=== PATIENT | male | born 1940 | race Caucasian/White ===

== ENCOUNTER 2025-08-03 07:47 | Outpatient (CLI) | payer MEDICARE, BC, SELFPAY ==
--- NOTE | 2025-08-03 08:52 | P.ANES_ITS ---
Anesthesia Charges Start Date/Time Anesthesia Start Date: 08/03/25 Anesthesia Start Time: 08:25 Stop Date/Time Anesthesia Stop Date: 08/03/25 Anesthesia Stop Time: 08:50 Coding CPT Codes CPT Codes: ANES LWR INTST NDSC NOS - [id number] ([id number]) P3 - PATIENT W/SEVERE SYS DISEASE, QK - INFORMATION SYSTEMS SECURITY SPECIALIST 2-4 CNCRNT ANES PROC, QX - FILLER SHAKER SVC W/ MD MED DIRECTION
--- NOTE | 2025-08-03 08:52 | W.ANESCHARGE ---
Anesthesia Charges Start Date/Time Anesthesia Start Date: 08/03/25 Anesthesia Start Time: 08:25 Stop Date/Time Anesthesia Stop Date: 08/03/25 Anesthesia Stop Time: 08:50 Coding CPT Codes CPT Codes: ANES LWR INTST NDSC NOS - [id number] ([id number]) P3 - PATIENT W/SEVERE SYS DISEASE, QK - DRAMATIC CRITIC 2-4 CNCRNT ANES PROC, QX - PUMP SERVICER HELPER SVC W/ MD MED DIRECTION
--- NOTE | 2025-08-03 09:26 | W.ANESCHARGE ---
Anesthesia Charges Start Date/Time Anesthesia Start Date: 08/03/25 Anesthesia Start Time: 08:25 Stop Date/Time Anesthesia Stop Date: 08/03/25 Anesthesia Stop Time: 08:50 Summary Extremes of Age - Over 70 or under 1: MDA Coding CPT Codes CPT Codes: ANES LWR INTST NDSC NOS - [id number] ([id number]) QK - SENIOR BI ARCHITECT 2-4 CNCRNT ANES PROC, QX - SINTER PRESS OPERATOR SVC W/ MD MED DIRECTION, P3 - PATIENT W/SEVERE SYS DISEASE Additional Codes: Summary - Extremes of Age - Over 70 or under 1: MDA ([id number])
== END 2025-08-03 07:48 | disposition home or self-care (01) ==
PROVIDERS: PCP Family Medicine; Visit Provider Internal Medicine Gastroenterology
DX: D12.0 Benign neoplasm of cecum (principal); Z86.0101 Personal history of adenomatous and serrated colon polyps
CPT/HCPCS: 00811; 45385; 88305; 99100; J2704